=== PATIENT | female | born 1995 | race Caucasian/White ===

== ENCOUNTER 2021-12-26 12:03 | Emergency (ER) | payer OTHER ==
--- NOTE | 2021-12-26 12:05 | ERPHSYRPT ---
- History of Present Illness Time Seen by Provider: 12/26/21 12:05 Historian: patient Exam Limitations: no limitations Physician History: 26 y/o white female pt of gerardo jackson who presents with lower abd pain and assoc bilat flank pain 05/12. she has urinary frequency and urgency. she denies f/c. she denies n/v/d. she denies cp and sob. pt drove herself to ED Timing/Duration: day(s) (4) Abdominal Pain Onset Location: suprapubic Pain Radiation: flank Severity of Pain-Max: moderate Severity of Pain-Current: moderate Modifying Factors: Improves With: urinating Associated Symptoms: No chest pain, No diarrhea, No nausea, No neck pain, No vomiting Previous symptoms: no prior history Allergies/Adverse Reactions: amoxicillin Allergy (Verified 12/26/21 12:14) Penicillins Allergy (Verified 12/26/21 12:14) Travel Risk - International Travel Have you traveled outside of the country in past 3 weeks: No - Coronavirus Screening Are you exhibiting any of the following symptoms?: No Close contact with a COVID-19 positive Pt in past 14-21 Days: No - Review of Systems Constitutional: No Symptoms Eyes: No Symptoms Ears, Nose, & Throat: No Symptoms Respiratory: No Symptoms Cardiac: No Symptoms Abdominal/Gastrointestinal: Abdominal Pain Genitourinary Symptoms: Dysuria, Frequency, Urgency, Flank Pain Musculoskeletal: No Symptoms Skin: No Symptoms Neurological: No Symptoms Psychological: No Symptoms Endocrine: No Symptoms Hematologic/Lymphatic: No Symptoms Immunological/Allergic: No Symptoms All Other Systems: Reviewed and Negative - Past Medical History Pertinent Past Medical History: Yes - Past Surgical History Past Surgical History: Yes - Nursing Vital Signs Nursing Vital Signs: Initial Vital Signs Temperature 98.2 F 12/26/21 12:14 Pulse Rate 129 H 12/26/21 12:14 Respiratory Rate 18 12/26/21 12:14 Blood Pressure 115/86 12/26/21 12:14 O2 Sat by Pulse Oximetry 99 12/26/21 12:14 Pain Scale Pain Intensity 5 - Physical Exam General Appearance: mild distress, alert, anxiety Eye Exam: PERRL/EOMI, eyes nml inspection Ears, Nose, Throat Exam: normal ENT inspection, moist mucous membranes Neck Exam: normal inspection, non-tender, supple, full range of motion Respiratory Exam: normal breath sounds, lungs clear, airway intact, No chest tenderness, No respiratory distress Cardiovascular Exam: tachycardia Gastrointestinal/Abdomen Exam: soft, normal bowel sounds, tenderness (mild suprapubic), guarding, No rebound Pelvic Exam: not done Rectal Exam: not done Back Exam: normal inspection, normal range of motion, CVA tenderness, No vert ebral tenderness Extremity Exam: normal inspection, normal range of motion, pelvis stable Neurologic Exam: alert, oriented x 3, cooperative, 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-XII nml as tested, normal mood/affect, nml cerebellar function, nml station & gait, sensation nml Skin Exam: normal color, warm, dry Lymphatic Exam: No adenopathy SpO2 Interpretation: normal O2 Delivery: Room Air - Course Nursing assessment & vital signs reviewed: Yes Ordered Tests: Active Orders 24 hr Category Date Time Status IV Insertion STAT Care 12/26/21 12:20 Active IV Insertion STAT Care 12/26/21 12:20 Active ABDOMEN AND PELVIS W/0 CONTRAS [CT] Stat Exams 12/26/21 14:21 Completed AMYLASE Stat Lab 12/26/21 12:15 Completed BLOOD CULTURE Stat Lab 12/26/21 12:45 Received CBC W DIFF Stat Lab 12/26/21 12:15 Completed CMP Stat Lab 12/26/21 12:15 Completed CULTURE,URINE Stat Lab 12/26/21 12:20 Received HCG,QUALITATIVE URINE Stat Lab 12/26/21 12:20 Completed LIPASE Stat Lab 12/26/21 12:15 Completed Lactic Acid Stat Lab 12/26/21 12:20 Completed Manual Differential NC Stat Lab 12/26/21 12:15 Completed Medication Summary Discontinued Medications Generic Name Dose Route Start Last Admin Trade Name Rebel PRN Reason Stop Dose Admin Sodium Chloride 1,000 mls @ 999 mls/hr 12/26/21 12:20 12/26/21 13:40 Sodium Chloride 0.9% 1000 Ml IV 12/26/21 13:20 Infused .Q1H1M STA Infusion Sodium Chloride Confirm 12/26/21 12:29 Sodium Chloride 0.9% 1000 Ml Administered 12/26/21 12:30 Dose 1,000 mls @ ud .ROUTE .STK-MED ONE Ketorolac Tromethamine 30 mg 12/26/21 12:20 12/26/21 12:32 Ketorolac Tromethamine 30 Mg/Ml Inj IV 12/26/21 12:21 30 mg STAT ONE Administration Ketorolac Tromethamine Confirm 12/26/21 12:29 Ketorolac Tromethamine 30 Mg/Ml Inj Administered 12/26/21 12:30 Dose 30 mg .ROUTE .STK-MED ONE Ondansetron HCl 4 mg 12/26/21 12:20 12/26/21 12:32 Ondansetron Hcl 4 Mg/2 Ml Vial IV 12/26/21 12:21 4 mg STAT ONE Administration Ondansetron HCl Confirm 12/26/21 12:29 Ondansetron Hcl 4 Mg/2 Ml Vial Administered 12/26/21 12:30 Dose 4 mg .ROUTE .STK-MED ONE Lab/Rad Data: Laboratory Result Diagrams 12/26/21 12:15 12/26/21 12:15 Laboratory Results 12/26/21 12/26/21 12/26/21 Range/Units 12:20 12:20 12:20 WBC (4.0-10.5) K/mm3 RBC (4.1-5.4) M/mm3 Hgb (12.0-16.0) gm/dl Hct (35-47) % MCV (78-100) fl MCH (26-32) pg MCHC (32-36) g/dl RDW (11.5-14.0) % Plt Count (150-450) K/mm3 MPV (7.5-11.0) fl Sodium (137-145) mmol/L Potassium (3.5-5.1) mmol/L Chloride (98-107) mmol/L Carbon Dioxide (22-30) mmol/L Anion Gap (5-15) MEQ/L BUN (7-17) mg/dL Creatinine (0.52-1.04) mg/dL Estimated GFR ML/MIN Glucose (74-106) mg/dL Lactic Acid 2.0 (0.4-2.0) Calcium (8.4-10.2) mg/dL Total Bilirubin (0.2-1.3) mg/dL AST (14-36) U/L ALT (0-35) U/L Alkaline Phosphatase (38-126) U/L Serum Total Protein (6.3-8.2) g/dL Albumin (3.5-5.0) g/dL Amylase (30-110) U/L Lipase (23-300) U/L Urinalys Dipstick Clnc Pending Urine Color YELLOW (YELLOW) Urine Appearance CLEAR (CLEAR) Urine pH 6.0 (5-6) Ur Specific [place] 1.015 (1.005-1.025) POC Urine Protein Conf >=300 (Negative) Urine Ketones NEGATIVE (NEGATIVE) Urine Nitrite POSITIVE (NEGATIVE) Urine Bilirubin NEGATIVE (NEGATIVE) Urine Urobilinogen 1 (0-1) mg/dL Urine Leukocytes MODERATE (NEGATIVE) Urine WBC (Auto) >100 (0-5) /HPF Urine RBC (Auto) 26-50 (0-2) /HPF U Epithel Cells (Auto) RARE (FEW) /HPF Urine Bacteria (Auto) MODERATE (NEGATIVE) /HPF Urine RBC MODERATE NON-HEM (0-5) Kan/ul Urine Mucus (Auto) SLIGHT (NEGATIVE) /HPF Ur Culture Indicated? YES Urine Glucose NEGATIVE (NEGATIVE) mg/dL Urine HCG, Qual NEGATIVE (Negative) 12/26/21 12/26/21 Range/Units 12:15 12:15 WBC 20.3 H (4.0-10.5) K/mm3 RBC 4.88 (4.1-5.4) M/mm3 Hgb 15.2 (12.0-16.0) gm/dl Hct 43.1 (35-47) % MCV 88.3 (78-100) fl MCH 31.1 (26-32) pg MCHC 35.3 (32-36) g/dl RDW 12.4 (11.5-14.0) % Plt Count 322 (150-450) K/mm3 MPV 10.5 (7.5-11.0) fl Sodium 137 (137-145) mmol/L Potassium 3.7 (3.5-5.1) mmol/L Chloride 96 L (98-107) mmol/L Carbon Dioxide 24 (22-30) mmol/L Anion Gap 20.6 H (5-15) MEQ/L BUN 9 (7-17) mg/dL Creatinine 0.78 (0.52-1.04) mg/dL Estimated GFR > 60.0 ML/MIN Glucose 92 (74-106) mg/dL Lactic Acid (0.4-2.0) Calcium 9.5 (8.4-10.2) mg/dL Total Bilirubin 2.20 H (0.2-1.3) mg/dL AST 25 (14-36) U/L ALT 20 (0-35) U/L Alkaline Phosphatase 71 (38-126) U/L Serum Total Protein 7.9 (6.3-8.2) g/dL Albumin 4.6 (3.5-5.0) g/dL Amylase 36 (30-110) U/L Lipase 36 (23-300) U/L Urinalys Dipstick Clnc Urine Color (YELLOW) Urine Appearance (CLEAR) Urine pH (5-6) Ur Specific [place] (1.005-1.025) POC Urine Protein Conf (Negative) Urine Ketones (NEGATIVE) Urine Nitrite (NEGATIVE) Urine Bilirubin (NEGATIVE) Urine Urobilinogen (0-1) mg/dL Urine Leukocytes (NEGATIVE) Urine WBC (Auto) (0-5) /HPF Urine RBC (Auto) (0-2) /HPF U Epithel Cells (Auto) (FEW) /HPF Urine Bacteria (Auto) (NEGATIVE) /HPF Urine RBC (0-5) Kan/ul Urine Mucus (Auto) (NEGATIVE) /HPF Ur Culture Indicated? Urine Glucose (NEGATIVE) mg/dL Urine HCG, Qual (Negative) - Progress Progress: improved, re-examined Progress Note: 12/26/21 14:55 ct abd/pelvis without- right renal edema with perinephric stranding. c/w pyelonephritis Counseled pt/family regarding: lab results, diagnosis, need for follow-up, rad results - Departure Departure Disposition: Home Clinical Impression: Pyelonephritis Condition: Stable Critical Care Time: No Referrals: CAMACHO JACKSON DIRECTOR SURGICAL [Primary Care Provider] - Follow up/PCP as directed Additional Instructions: drink plenty of fluids. add ibuprofen 600 mg orally with foods 3 times daily for 5 days. take your antibiotics as prescribed. Prescriptions: Hydrocodone/APAP 5/325 [[place] 5/325 mg] 1 each PO Q8H PRN PRN #8 tablet MDD 3 PRN Reason: Pain Levofloxacin [Levaquin 500 MG Tablet] 500 mg PO DAILY #7 tablet
[2021-12-26] MEDS ORDERED: TORAdol 30 mg Injection IV ONE (12:20)
[2021-12-26] MEDS ORDERED: Sodium Chloride 0.9% 1000 ML 1,000 ML IV STA (12:20)
[2021-12-26] MEDS ORDERED: Zofran 4 MG/2 ML VIAL IV ONE (12:20)
[2021-12-26] MEDS ORDERED: Zofran 4 MG/2 ML VIAL ONE (12:29)
[2021-12-26] MEDS ORDERED: TORAdol 30 mg Injection ONE (12:29)
[2021-12-26] MEDS ORDERED: Sodium Chloride 0.9% 1000 ML 1,000 ML ONE (12:29)
[2021-12-26 13:20] LABS: ALBUMIN 4.6 g/dL (3.5-5.0); ALKALINE PHOSPHATASE 71 U/L (38-126); AMYLASE 36 U/L (30-110); ANION GAP 20.6 MEQ/L (5-15); BLOOD UREA NITROGEN 9 mg/dL (7-17); CHLORIDE 96 mmol/L (98-107); Calcium 9.5 mg/dL (8.4-10.2); Carbon Dioxide 24 mmol/L (22-30); Creatinine 1 0.78 mg/dL (0.52-1.04); EST GLOMERULAR FILTRATION RATE > 60.0 ML/MIN; Glucose 92 mg/dL (74-106); LIPASE 36 U/L (23-300); Potassium 3.7 mmol/L (3.5-5.1); SGOT/AST 25 U/L (14-36); SGPT/ALT 20 U/L (0-35); SODIUM 137 mmol/L (137-145); Total Protein 7.9 g/dL (6.3-8.2)
[2021-12-26 13:27] LABS: Hematocrit 43.1 % (35-47); Hemoglobin 15.2 gm/dl (12.0-16.0); Mean Cell Volume 88.3 fl (78-100); Mean Corpuscular Hemoglobin 31.1 pg (26-32); Mean Corpuscular Hgb Concent. 35.3 g/dl (32-36); Mean Platelet Volume 10.5 fl (7.5-11.0); Platelet Count 322 K/mm3 (150-450); Red Blood Count 4.88 M/mm3 (4.1-5.4); Red Cell Distribution Width 12.4 % (11.5-14.0); White Blood Count 20.3 K/mm3 (4.0-10.5)
--- NOTE | 2021-12-26 14:40 | XRAY ---
Indication: Pelvic pain. Multiple contiguous axial images obtained through the abdomen and pelvis without contrast. Comparison: None Lung bases clear. Heart not enlarged. Noncontrasted stomach and bowel loops appear nonobstructed. Normal retrocecal appendix. No free fluid/air. Markedly distended gallbladder up to 16 cm in length. No gallstones or biliary distention. Right kidney appears mildly edematous with perinephric stranding favoring underlying inflammatory/infectious process. No renal calculus or evidence for obstructive uropathy. Remaining liver, pancreas, spleen, adrenal glands, kidneys, ureters, bladder, uterus, and aorta are unremarkable for noncontrast exam. Osseous structures intact. No ventral or inguinal hernias. Impression: 1. Abnormally distended gallbladder. Gallbladder sonogram may yield further information. 2. Right renal edema with perinephric stranding. Rule out nephritis.
[2021-12-26 14:44] VITALS: O2SAT 99
[2021-12-26 14:56] LABS: Appearance CLEAR (CLEAR); Bacteria MODERATE /HPF (NEGATIVE); Bilirubin NEGATIVE (NEGATIVE); Epithelial Cells RARE /HPF (FEW); Glucose NEGATIVE (NEGATIVE); Ketones NEGATIVE (NEGATIVE); Mucus SLIGHT /HPF (NEGATIVE); Protein,Urine Dip >=300 (Negative); RBC 26-50 /HPF (0-2); RBC MODERATE NON-HEM Ery/ul (0-5); Specific Gravity 1.015 (1.005-1.025); Urobilinogen 1 mg/dL (0-1); WBC >100 /HPF (0-5)
[2021-12-26 14:57] LABS: Nitrite POSITIVE (NEGATIVE); Urine Cultured Indicated? YES
[2021-12-26] MEDS ORDERED: Levofloxacin 250MG Tablet PO ONE (14:59)
[2021-12-26 15:00] LABS: Dipstick done @ ? MAIN LAB
[2021-12-26] MEDS ORDERED: Levofloxacin 250MG Tablet ONE (15:01)
[2021-12-26 15:06] VITALS: BP 111/81; PULSE 92
[2021-12-26 19:28] LABS: Lymphocytes 14 % (24-44); Monocyte 6 % (0.0-12.0); Platelet Estimate NORMAL (NORMAL); Total Cells Counted 100
== END 2021-12-26 15:11 | disposition home or self-care (01) ==
LOC: ED 12:03
DX: N12 Tubulo-interstitial nephritis, not specified as acute or chronic (principal); R10.2 Pelvic and perineal pain; R10.9 Unspecified abdominal pain; R35.0 Frequency of micturition; R39.15 Urgency of urination; Z79.891 Long term (current) use of opiate analgesic
CPT/HCPCS: 36000; 36415; 74176; 80053; 81015; 82150; 83605; 83690; 84703; 85025; 87040; 87077; 87086; 87186; 96360; 96374; 96375; 99284; J1885; J2405; A9270-GY